=== PATIENT | male | born 1975 | race Caucasian/White ===

== ENCOUNTER 2017-02-19 18:42 | Emergency (ER) | payer OTHER ==
[~2017-02-19] VITALS: Ht 172.7 cm; Wt 87.5 kg
[2017-02-19 18:48] VITALS: BP 129/80
[2017-02-19 20:00] VITALS: BP 120/80
== END 2017-02-19 19:55 | disposition home or self-care (01) ==
LOC: MED 18:42
DX: K21.9 Gastro-esophageal reflux disease without esophagitis (principal); R03.0 Elevated blood-pressure reading, without diagnosis of hypertension; R07.0 Pain in throat; R11.0 Nausea
CPT/HCPCS: 99282